=== PATIENT | male | born 2000 | race Caucasian/White ===

== ENCOUNTER 2024-05-22 06:38 | Day surgery (SDC) | payer BC ==
[2024-05-22 07:02] VITALS: RESP 16; TEMP 97
[2024-05-22] MEDS: IV FLUID CONTINUATION 1,000 ML IV ONE (07:05)
[2024-05-22] MEDS: LACTATED RINGERS 1,000 ML IV SCH (07:05)
[2024-05-22] MEDS ORDERED: LIDOCAINE 1% INJ 10MG/ML (20 ML MDV) ONE (07:34)
[2024-05-22] MEDS ORDERED: PROPOFOL 10 MG/ML 20 ML VIAL IV ONE (07:34)
--- NOTE | 2024-05-22 08:02 | P.PCN ---
Date of Procedure: 05/22/24 Procedure(s) Performed: Brief history: Patient is a pleasant 23-year-old white male scheduled for an elective upper endoscopy as well as colonoscopy as a part of evaluation of intermittent episodes of abdominal pain associate nausea vomiting and altered bowel movements for the last 1 year duration. Symptoms are much worse in the last 1 month and last about 15 pounds. Procedure performed: Esophagogastroduodenoscopy with biopsy Colonoscopy with biopsy Preoperative diagnosis: Abdominal pain, intermittent nausea vomiting Change in bowel habits Anesthesia: MAC Procedure: After informed consent was obtained from the patient was brought into the endoscopy unit and IV sedation was administered by anesthesia under continuous monitoring. Initially upper endoscopy was done. The Olympus GF 160 video endoscope was inserted inserted into the mouth and esophagus intubated without any difficulty and was gradually advanced into the stomach and duodenum and carefully examined. The bulb and second part of the duodenum appeared normal. These were done from the duodenum to rule out celiac disease. The scope was then withdrawn into the stomach adequately insufflated with air and upon careful examination the antrum had patchy areas of erythema consistent with gastritis and biopsies were done from this area. Mucosa of the body, cardia and fundus appeared normal. The scope was then withdrawn into the esophagus. The GE junction was located at 40 cm to the incisors. It appeared regular with no erythema erosions or ulcerations. The mucosa in the distal esophagus had thickened esophageal folds and multiple biopsies were done from this area to rule out eosinophilic esophagitis. Rest of the esophagus appeared normal. Patient tolerated the procedure well. At this time the patient continued to remain sedation. Initial digital rectal examination was normal. Olympus CF 160 video colonoscope was then inserted into the rectum and gradually advanced to the cecum without any difficulty. Careful examination was performed as the scope was gradually being withdrawn. The prep was excellent. Was intubated in 20 cm visualized and appeared normal. The cecum, ascending colon, transverse colon, descending colon, sigmoid colon and rectum appeared normal. Retroflexion was performed in the rectum and no lesions were noted. Random biopsies were done from the ascending and descending colon to rule out microscopic/collagenous colitis patient tolerated the procedure well. Impression: 1. Upper endoscopy revealed mild antral gastritis and thickened distal esophageal folds status post biopsies to rule out eosinophilic esophagitis 2. Colonoscopy was within normal limits with no evidence of colorectal neoplasia Recommendations: Findings of this examination were discussed with the patient as well as his family. He was advised to follow-up with the biopsy results. He will be seen in the office in 2 weeks.
[2024-05-22 08:20] VITALS: BP 109/71; PULSE 63
== END 2024-05-22 08:39 | disposition home or self-care (01) ==
LOC: ORWHC2ENDO 06:38
PROVIDERS: ATTEND Internal Medicine Gastroenterology
CPT/HCPCS: 43239; 45380; 88305